=== PATIENT | female | born 2000 | race Caucasian/White ===

== ENCOUNTER → 2019-02-10 22:45 | Observation (INO) ==
[2019-02-10 21:26] LABS: Bilirubin,Urine Negative (Negative); Blood,Urine Negative (Negative); Clarity,Urine Cloudy (Clear); Color,Urine Yellow (Yellow); Glucose,Urine (UA) Normal (Normal); Ketones,Urine Negative (Negative); Leukocyte Esterase,Urine Moderate (Negative); Nitrite,Urine Negative (Negative); PH,Urine 6.5 pH Units (5.0-8.0); Protein,Urine Negative (Neg-Trace); Specific Gravity,Urine < 1.005 (1.010-1.025); Urobilinogen,Urine Normal (Normal)
[2019-02-10 21:29] LABS: Bacteria,Urine Few per hpf (None-Few); Hyaline Casts,Urine None Seen per lpf (None-Few); RBC,Urine 0-3 per hpf (0-3); Squamous Epithelial Cell,Urine Many per lpf (None-Few)
[2019-02-10 21:34] LABS: Amphetamine Screen,Urine Negative ng/mL (Cutoff=1000); Barbiturate Screen,Urine Negative ng/mL (Cutoff=200); Benzodiazepines Screen,Urine Negative ng/mL (Cutoff=200); Cannabinoid Screen,Urine Negative ng/mL (Cutoff = 50); Cocaine Screen,Urine Negative ng/mL (Cutoff= 300); Opiate Screen,Urine Negative ng/mL (Cutoff=300); Phencyclidine Screen,Urine Negative ng/mL (Cutoff=25)
== END | disposition home or self-care (01) ==
LOC: 1NENULAB
PROVIDERS: ADMIT Obstetrics & Gynecology; ATTEND Obstetrics & Gynecology

== ENCOUNTER → 2019-03-24 23:03 | Observation (INO) ==
[2019-03-24 22:20] LABS: Basophils % 0.2 %; Eosinophils # 0.2 K/mcL (0.0-0.6); Eosinophils % 1.4 %; Hematocrit 35.6 % (35.3-44.9); Immature Granulocytes % 0.5 % (0-4); Lymphocytes # 2.2 K/mcL (0.6-4.6); Lymphocytes % 19.6 %; Mean Corpuscular HGB Conc 33.7 g/dL (31.6-35.5); Mean Corpuscular Hemoglobin 30.7 pg (28.0-33.3); Mean Platelet Volume 12.5 fL (9.4-12.4); Monocytes # 0.9 K/mcL (0.0-1.3); Monocytes % 8.2 %; Neutrophils # 7.8 K/mcL (1.6-8.9); Platelet Count 197 K/mcL (140-400); Red Blood Count 3.91 M/mcL (3.82-4.97); Red Cell Distribution Width 12.5 % (11.5-14.5); Segmented Neutrophils % 70.1 %
[2019-03-24 22:25] LABS: Amphetamine Screen,Urine Negative ng/mL (Cutoff=1000); Barbiturate Screen,Urine Negative ng/mL (Cutoff=200); Benzodiazepines Screen,Urine Negative ng/mL (Cutoff=200); Cannabinoid Screen,Urine Negative ng/mL (Cutoff = 50); Cocaine Screen,Urine Negative ng/mL (Cutoff= 300); Opiate Screen,Urine Negative ng/mL (Cutoff=300); Phencyclidine Screen,Urine Negative ng/mL (Cutoff=25)
[2019-03-24 22:29] LABS: Protein/Creatinine Ratio,Urine 0.21 mg/mg (0.00-0.20)
[2019-03-24 22:37] LABS: Alanine Aminotransferase 15 Units/L (7-52); Aspartate Amino Transferase 17 Units/L (13-39); BUN/Creatinine Ratio 17 (6-26); Blood Urea Nitrogen 9 mg/dL (6-20); Lactate Dehydrogenase 140 Units/L (140-271); eGFR For African Americans > 60 (> 60); eGFR For Non-African Americans > 60 (> 60)
--- NOTE | 2019-03-24 23:02 | Discharge Summary ---
Date of Encounter: 03/24/19 Time of Encounter: 23:01 - Discharge Diagnosis (1) 39 weeks gestation of Priority: Primary Status: Acute Comments: admitted for observation PIH labs and BPs WNL False labor (2) NST (non-stress test) reactive on surveillance Priority: Secondary Status: Acute Comments: FHR 135 bpm moderate variability+15x15 accels no decels noted. - Discharge Medications Prescriptions: No Action Vit 108/Iron/Folic AC [ One Tablet] 1 tab PO DAILY Home Medications: Vit 108/Iron/Folic AC [ One Tablet] 1 tab PO DAILY 02/10/19 [History] Allergies/Adverse Reactions: Allergy/AdvReac Type Severity Reaction Status Date / Time NSAIDS (Non-Steroidal Allergy Hives Verified 02/10/19 21:16 Anti-Inflamma Data Procedures and tests throughout hospitalization: Laboratory Tests 03/24/19 03/24/19 03/24/19 21:33 21:33 21:33 WBC 11.0 RBC 3.91 Hgb 12.0 Hct 35.6 MCV 91.0 MCH 30.7 MCHC 33.7 RDW 12.5 Plt Count 197 MPV 12.5 H Immature Gran % 0.5 Seg Neutrophils % 70.1 Lymphocytes % 19.6 Monocytes % 8.2 Eosinophils % 1.4 Basophils % 0.2 Neutrophils # 7.8 Lymphocytes # 2.2 Monocytes # 0.9 Eosinophils # 0.2 Basophils # 0.0 BUN 9 Creatinine 0.53 L Est GFR ( Amer) > 60 Est GFR (Non-Af Amer) > 60 BUN/Creatinine Ratio 17 Uric Acid 4.0 AST 17 ALT 15 Lactate Dehydrogenase 140 Urine Creatinine Protein/Creatinin Ratio Urine Total Protein Urine Opiates Screen Negative Ur Buprenorphine Scrn Negative Ur Barbiturates Screen Negative Ur Phencyclidine Scrn Negative Ur Amphetamines Screen Negative U Benzodiazepines Scrn Negative Urine Cocaine Screen Negative U Marijuana (THC) Screen Negative Ur Drug Screen Interp See Below 03/24/19 21:33 WBC RBC Hgb Hct MCV MCH MCHC RDW Plt Count MPV Immature Gran % Seg Neutrophils % Lymphocytes % Monocytes % Eosinophils % Basophils % Neutrophils # Lymphocytes # Monocytes # Eosinophils # Basophils # BUN Creatinine Est GFR ( Amer) Est GFR (Non-Af Amer) BUN/Creatinine Ratio Uric Acid AST ALT Lactate Dehydrogenase Urine Creatinine 58 Protein/Creatinin Ratio 0.21 H Urine Total Protein 12 Urine Opiates Screen Ur Buprenorphine Scrn Ur Barbiturates Screen Ur Phencyclidine Scrn Ur Amphetamines Screen U Benzodiazepines Scrn Urine Cocaine Screen U Marijuana (THC) Screen Ur Drug Screen Interp Labs on day of discharge: Labs from last 24 hours 03/24/19 03/24/19 03/24/19 21:33 21:33 21:33 WBC 11.0 RBC 3.91 Hgb 12.0 Hct 35.6 MCV 91.0 MCH 30.7 MCHC 33.7 RDW 12.5 Plt Count 197 MPV 12.5 H Immature Gran % 0.5 Seg Neutrophils % 70.1 Lymphocytes % 19.6 Monocytes % 8.2 Eosinophils % 1.4 Basophils % 0.2 Neutrophils # 7.8 Lymphocytes # 2.2 Monocytes # 0.9 Eosinophils # 0.2 Basophils # 0.0 BUN 9 Creatinine 0.53 L Est GFR ( Amer) > 60 Est GFR (Non-Af Amer) > 60 BUN/Creatinine Ratio 17 Uric Acid 4.0 AST 17 ALT 15 Lactate Dehydrogenase 140 Urine Creatinine 58 Protein/Creatinin Ratio 0.21 H Urine Total Protein 12 Urine Opiates Screen Ur Buprenorphine Scrn Ur Barbiturates Screen Ur Phencyclidine Scrn Ur Amphetamines Screen U Benzodiazepines Scrn Urine Cocaine Screen U Marijuana (THC) Screen Ur Drug Screen Interp 03/24/19 21:33 WBC RBC Hgb Hct MCV MCH MCHC RDW Plt Count MPV Immature Gran % Seg Neutrophils % Lymphocytes % Monocytes % Eosinophils % Basophils % Neutrophils # Lymphocytes # Monocytes # Eosinophils # Basophils # BUN Creatinine Est GFR ( Amer) Est GFR (Non-Af Amer) BUN/Creatinine Ratio Uric Acid AST ALT Lactate Dehydrogenase Urine Creatinine Protein/Creatinin Ratio Urine Total Protein Urine Opiates Screen Negative Ur Buprenorphine Scrn Negative Ur Barbiturates Screen Negative Ur Phencyclidine Scrn Negative Ur Amphetamines Screen Negative U Benzodiazepines Scrn Negative Urine Cocaine Screen Negative U Marijuana (THC) Screen Negative Ur Drug Screen Interp See Below Date of admission: 03/24/19 21:16 Discharging clinician: Naida Stephenson Anticipated date of discharge: 03/24/19 - Patient Status Disposition: Home, Self-Care Condition: Good Functional capacity at discharge: independent ambulation - Discharge Instructions Follow Up With: Sergey Hunter MD [Partnered Physician] - - Diet and Activity Activity: increase activity as tolerated Diet: regular diet Hospital Course MEDICAL TECHNOLOGIST CHIEF Hospital course: Patient is a 19 y/o at 39w0d presents to labor and delivery with complaints of elevated BP at home and decreased movement. Patient denies headache, dizziness or blurred vision. Patient reports feeling movement but less than usual. She also reports feeling some contractions but denies LOF or VB. She denies urinary symptoms. Patient then asked to be induced and her bhatti score of 3. Discussed with patient risks of IOL with non-favorable cervix. I then e ncouraged patient to discuss IOL options with her provider Dr. Hunter at her appointment on Tuesday. Patient verbalized understanding. Time Attestation: Total time spent providing and/or coordinating discharge services: Time Spent: Less than 30 minutes Exam - Constitutional General appearance IM: A&O X 3, pleasant, answers questions appropriately - Respiratory Respiratory exam: Present: CTAB - Cardiovascular Cardiovascular exam IM: Present: RRR, +S1, +S2 - GI/Abdominal GI/Abdominal exam IM: normal bowel sounds - Extremities Exam Extremities exam IM: Present: full ROM, normal capillary refill, normal inspection - Neurological Exam Neurological exam: alert, oriented X3, reflexes normal - Other Additional findings: SVE: Closed/50/-2 FHR 135 bpm moderate variability +15x15 accels no decels noted. Irregular contractions. Cat. 1 tracing
== END | disposition home or self-care (01) ==
LOC: 1NENULAB
PROVIDERS: ADMIT Advanced Practice Midwife; ATTEND Advanced Practice Midwife

== ENCOUNTER 2019-03-29 04:00 | Inpatient (IN) ==
[2019-03-29] MEDS ORDERED: Lidocaine 1% 20 ML MDV ID PRN (04:26)
[2019-03-29] MEDS ORDERED: Famotidine 20 MG/2 ML VIAL IVP PRN (04:26)
[2019-03-29] MEDS ORDERED: Naloxone 0.4 MG/ML INJ IVP PRN (04:26)
[2019-03-29] MEDS ORDERED: miSOPROStol 25 MCG TABLET PO PRN (04:26)
[2019-03-29] MEDS ORDERED: Metoclopramide 10 MG/2 ML VIAL IVP PRN (04:26)
[2019-03-29] MEDS ORDERED: Ondansetron 4 MG/2 ML VIAL IVP PRN (04:26)
[2019-03-29] MEDS ORDERED: *HR* Nalbuphine 10 MG/ML AMPUL IVP PRN (04:26)
[2019-03-29] MEDS ORDERED: Ringers Solution, Lactated 1,000 ML IVC SCH (04:30)
[2019-03-29 04:59] LABS: Basophils % 0.3 %; Eosinophils # 0.1 K/mcL (0.0-0.6); Eosinophils % 1.3 %; Hematocrit 35.5 % (35.3-44.9); Hemoglobin 11.9 g/dL (11.5-15.4); Immature Granulocytes % 0.5 % (0-4); Lymphocytes # 2.6 K/mcL (0.6-4.6); Lymphocytes % 23.9 %; Mean Corpuscular HGB Conc 33.5 g/dL (31.6-35.5); Mean Corpuscular Hemoglobin 30.1 pg (28.0-33.3); Mean Corpuscular Volume 89.9 fL (83.0-100.0); Mean Platelet Volume 12.6 fL (9.4-12.4); Monocytes # 0.9 K/mcL (0.0-1.3); Monocytes % 8.3 %; Neutrophils # 7.2 K/mcL (1.6-8.9); Platelet Count 194 K/mcL (140-400); Red Blood Count 3.95 M/mcL (3.82-4.97); Red Cell Distribution Width 12.5 % (11.5-14.5); Segmented Neutrophils % 65.7 %; White Blood Count 10.9 K/mcL (4.3-11.1)
[2019-03-29 05:08] LABS: Amphetamine Screen,Urine Negative ng/mL (Cutoff=1000); Barbiturate Screen,Urine Negative ng/mL (Cutoff=200); Benzodiazepines Screen,Urine Negative ng/mL (Cutoff=200); Cannabinoid Screen,Urine Negative ng/mL (Cutoff = 50); Cocaine Screen,Urine Negative ng/mL (Cutoff= 300); Opiate Screen,Urine Negative ng/mL (Cutoff=300); Phencyclidine Screen,Urine Negative ng/mL (Cutoff=25)
--- NOTE | 2019-03-29 06:43 | Event Note ---
Date of Encounter: 03/29/19 Time of Encounter: 06:42 Double cervical siegel balloon discussed with patient and she agrees to proceed. Siegel placed without difficulty, 60mL sterile water instilled into each balloon. Patient tolerated without difficulty.
[2019-03-29] MEDS ORDERED: Epidural Premix (fent/bupiv) 110 ML EP SCH (08:00)
[2019-03-29] MEDS ORDERED: EPHEDrine 50 MG/ML VIAL IVP PRN (08:00)
--- NOTE | 2019-03-29 08:00 | Anesthesia Evaluation PreOp ---
Date of Encounter: 03/29/19 Time of Encounter: 07:56 - Past History Planned Operation: rima Cardiac History: Denies any Significant Hx Pulmonary History: Denies Any Significant HX BENCH MECHANIC History: Denies Any Significant HX Other Medical History: Denies Any Significant HX Anesthesia History: No Prior Anesthetic Complications, Past Anesthesia : Yes (39+5, ) Alcohol Use: none Drug use: none Medications and Allergies Vit 108/Iron/Folic AC [ One Tablet] 1 tab PO DAILY 02/10/19 [History] Allergy/AdvReac Type Severity Reaction Status Date / Time NSAIDS (Non-Steroidal Allergy Severe Anaphylaxis Verified 03/29/19 04:41 Anti-Inflamma - Meds/Allergy Pre-op Review Medications Reviewed: Yes Allergies Reviewed: Yes Beta Blockers on Current Med List: No Anesthesia Results - Labs 03/29/19 04:40 Anesthesia Exam O2 Sat Height 1.63 m Weight 75.8 kg Height: 64 Weight: 75 - HEENT Pupil (Motor): Pupils equal Mallampati: II Teeth: Normal Oral Opening: Greater than 3 - BENCH MECHANIC LOC: Oriented BENCH MECHANIC Motor: Normal RUE, Normal LUE, Normal RLE, Normal LLE, Normal Face BENCH MECHANIC Sensory: Normal: RUE, LUE, RLE, LLE, Face - Cardiac Rhythm: Regular Murmur: None JVD: No Carotid Bruit: No - Pulmonary Breath Sounds: bilateral Clear Respiratory Effort: Symmetrical Anesthesia Assess/Plan ASA Score: 2 Level of consciousness: Cooperative Anesthetic Plan: Epidural Monitoring Plan: Standard Monitors
[2019-03-29] MEDS ORDERED: Oxytocin 20 units/ LR 1000 mL 20 UNIT/1,000 ML BAG IVC SCH (12:30)
--- NOTE | 2019-03-29 13:03 | OB/GYN History & Physical ---
Date of Encounter: 03/29/19 Time of Encounter: 13:00 Assessment and Plan (1) 39 weeks gestation of Current visit: No Status: Acute History of Present Illness Chief complaint: induction HPI: Ms. Nunez is a 19 year old female 1 at 39 weeks and 4 days. This patient presents to labor and delivery for induction of labor. She has allergies to nonsteroidals which causes anaphylaxis. Current medications include vitamins. She has no chronic medical conditions. Surgical history includes laparoscopic surgery for endometriosis, tonsillectomy, wisdom teeth extraction. She has no history of abnormal passers, STDs or pelvic infections. Socially she denies tobacco, alcohol, illicit drug use. Family history is significant for heart disease, skin cancer.. Past Med Surg Social Fam HX - Past Medical History Medical history: no medical history Psychiatric history: no psych history - Past Surgical History Surgical History: other Additional surgical history: tubes edith ears, endometorosis sx, T&A - Social History Smoking Status: Former smoker Smokeless Tobacco Status: No Alcohol use: none Drug use: none - Family History Mother Adopted: No Hx Family Cardiac Disorders: No Hx Family Respiratory Disorders: No Hx Family Cancer: No Hx Family GI Disorders: No Hx Family Genitourinary Disorders: No Hx Family Endocrine Disorder: Yes (DM2) Hx Family Musculoskeletal Disorders: No Hx Family Neuromuscular Disorders: No Hx Family Neurologic Disorders: No Hx Family HEENT Disorders: No Hx Family Autoimmune Disorders: No Hx Family Reproductive Disorders: No Hx Family Psychosocial Disorders: No Hx Family Medical Disorders: No Obstetrical History - Pregnancies : 1 Medications and Allergies Vit 108/Iron/Folic AC [ One Tablet] 1 tab PO DAILY 02/10/19 [History] Allergy/AdvReac Type Severity Reaction Status Date / Time NSAIDS (Non-Steroidal Allergy Severe Anaphylaxis Verified 03/29/19 04:41 Anti-Inflamma Review of System OB All systems PM: reviewed and no additional remarkable complaints except as stated Exam - Constitutional Constitutional: well developed, well nourished, no acute distress, average body habitus - HEENT HEENT: EOMI, PERRL, Normocephaly - Neck Neck exam: full ROM - Lungs Respiratory exam: CTAB - Cardiovascular Cardiovascular exam: RRR - Abdomen Abdomen: Present: bowel sounds normal, gravid, non tender - Extremities Extremities exam: full ROM, normal capillary refill - Vagina Vagina: Present: normal moisture - Cervix Dilation: 2 Effacement: 50 Station: -3 - Uterus Uterus exam: Present: normal size Results Result Diagrams: 03/29/19 04:40 Abnormal lab results MPV 12.6 fL (9.4-12.4) H 03/29/19 04:40 All other labs normal. - VTE Reasons for not Prescribing Prophylaxis: Treatment not Indicated - Low risk for VTE
--- NOTE | 2019-03-29 13:29 | Event Note ---
Date of Encounter: 03/29/19 Time of Encounter: 13:27 Vaginal exam performed. Mccallum is out. Cervix now 7 cm 70% effaced and -3 station. Category 1 tracing. Patient up walking to try to bring the infant down.
--- NOTE | 2019-03-29 15:33 | Event Note ---
Date of Encounter: 03/29/19 Time of Encounter: 15:31 Patient examined. Sterile vaginal exam 8 cm 80% effaced and 0 to -1 station. Artificial rupture membranes was performed. Clear fluid was returned. Category 1 tracing. Contractions every 2-3 minutes.
[2019-03-29] MEDS ORDERED: Ropivacaine/PF 0.2% 20 ML VIAL ONE (17:21)
[2019-03-29] MEDS ORDERED: *HR* FentaNYL (PF) 100 MCG/2 ML VIAL ONE (17:21)
--- NOTE | 2019-03-29 17:49 | Anesthesia Procedures ---
Date of Encounter: 03/29/19 Time of Encounter: 17:20 (procedure end time 123) Procedures: Anesthesia - Epidural/Spinal Patient ID/Chart reviewed: Yes Patient examined: Yes OB Eval: Contractions: Non-stressed pattern Consent Obtained: Yes Supplemental Oxygen: None/Room Air Site Prep: Aseptic Technique Patient position: upright Local Anesthetic: Lidocaine 1% Amount of Local Anesthetic used: 3 Touhy Needle Gauge: 18 Touhy Needle Depth (cm): 5 Catheter Depth at Skin (cm): 12 Test Dose (1.5% Lido + Epi): Volume given (mls): 3 Test Dose Result: Negative Loading Dose: Fentanyl (mcg): 100 Loading Dose: Other: 5ml 0.2% ropivicaine Loading Dose Administered: Thru Touhy Needle Infusion Med: 0.125% Bupivacaine w/ 2 mcg/ml Fentanyl Infusion Rate (mls/hr): [address]: Tegaderm Interspace Used: L4-L5 Loss of Resistance (TIM): Yes Blood: No CSF: No Paresthesia: No Procedure: Strict asepsis, one attempt without redirections. No parasthesias, no heme, no CSF. FHR unchanged
--- NOTE | 2019-03-29 21:36 | Event Note ---
Date of Encounter: 03/29/19 Time of Encounter: 21:35 Repeat vaginal exam performed. Cervix is unchanged. Patient is 5-6 cm 70% effaced and very high. There is been no descent of baby. At this point tracing is category 1. Contractions irregular. We discussed the possibility of a section. We just touch on the subject as this baby has not come down. She understands completely. She also understands as long as the tracing is reactive we will continue with Pitocin and inducing her labor.
[2019-03-30] MEDS ORDERED: Chloroprocaine/PF 20 ML VIAL INFILT ONE (03:24)
--- NOTE | 2019-03-30 03:24 | Event Note ---
Date of Encounter: 03/30/19 Time of Encounter: 03:22 Desire patient. Patient has been pushing with nursing. Patient has not been complete for 6 hours. There is been no descent of . Patient has tried multiple positions pushing. She is towel old. She was told with her legs. Nursing is helped tremendously. Patient cannot remove this baby down. We discussed a section. Patient does agree. We will get consent and take patient back for a primary section.
[2019-03-30] MEDS ORDERED: *HR* Oxytocin 10 UNIT/ML VIAL IM ONE (03:25)
[2019-03-30] MEDS ORDERED: *HR* Morphine Sulfate/PF 10 MG/10 ML AMPUL ONE (03:29)
[2019-03-30] MEDS ORDERED: Lidocaine -MPF 2% 5 ML VIAL ONE (03:33)
[2019-03-30] MEDS ORDERED: Azithromycin 500 MG in 0.9 % Sodium Chloride 250 ML IVPB ONE (03:54)
[2019-03-30] MEDS ORDERED: Ringers Solution, Lactated 1,000 ML ONE (03:57)
[2019-03-30] MEDS ORDERED: *HR* FentaNYL (PF) 100 MCG/2 ML VIAL ONE ×2 (03:58→04:41)
[2019-03-30] MEDS ORDERED: *HR* OxyCODONE Immed Rel 5 MG TABLET PO PRN (04:09)
[2019-03-30] MEDS ORDERED: *HR* HYDROmorphone (PF) 1 MG/ML SYRINGE IVP PRN (04:09)
[2019-03-30] MEDS ORDERED: Acetaminophen IV 1,000 MG/100 ML INFUS..BTL IVPB ONE (04:09)
[2019-03-30] MEDS ORDERED: Ondansetron 4 MG/2 ML VIAL ONE (04:12)
--- NOTE | 2019-03-30 04:41 | OB/GYN Procedure Note ---
Section - Date of procedure: 03/30/19 Preop diagnosis: arrest of descent Post-op diagnosis: same Procedure: primary low transverse Surgeon: Sergey Hunter Quantitated Blood Loss: 500 Was there an student assistant present: Yes Urgent Care: [facility] [employer]lorine Plant Operator: Navi Jolly Anesthesia Type: Spinal section complications: none Disposition: PACU Specimens: Placenta - (s) A Infant Delivery Date: 03/30/19 Delivery Time: 03:57 Presentation: vertex Position: OA Route of delivery: other Gender: Female Viability: Viable Pounds: 6 Ounces: 12 Gram Weight: 3.075 kg at 1 minute: 8 at 5 minutes: 9 Shoulder Dystocia: not encountered Placenta: spontaneous Cord: nuchal cord, 3 umbilical vessels - Narrative Narrative: This patient had been complete for 6 hours. She was unable to bring the infant down with pushing. Patient was consented for section. She was taken back to the operating with IV in place. She was then given a bolus of her epidural. She was then prepped and draped in usual sterile fashion. Once adequate analgesia to definitive since it was made. Was carried sharply through the subtenons fatty tissue until the fascial layers reached. The fascia was then nicked in the midline and incised bilaterally with scissors. Then dissected vertically for adequate exposure. Rectus abdominis musculature is and midline. The peritoneum sharply entered dissected vertically. A bladder blade was placed at the inferior margin incision. Bladder flap was then developed. A bladder blade was placed over the bladder flap and a low transverse incision was then made lower segment. Fluid to be clear. The 's head was then delivered per the rest cancer without difficulty. Infant cried immediately upon delivery there was a cord around neck 1 which was delivered through. cried immediately upon delivery. Cord was cut to cut. The was then passed to NICU team in attendance. Cord bloods obtained. Placenta was then delivered via uterine lavage and massage. The uterus was then delivered. Uterine lavage again was performed. There was extension of the incision down the patient's right side. This was closed the Vicryl suture running locking fashion. The incision was then closed the Vicryl suture running locking fashion. One [id number] was placed for final hemostasis. At this point the uterus was replaced the pelvic cavity. The pelvic cavity was rinsed thoroughly with sterile water 2. Seeing no bleeding the procedure was terminated. Sponge, needle, and instrument count was correct 2. The fascia was then closed the Vicryl suture running nonlocking fashion. The suprafascial region was rinsed thoroughly with sterile water testing all bleeders cauterized. The skin was closed gabe. Patient tolerated procedure well. His blood loss 500 mL. Findings a female infant weight 6 lbs. 12 oz. Apgars are 8 at 1 minute and 9 at 5 minutes.
--- NOTE | 2019-03-30 06:10 | Anesthesia Evaluation Post Op ---
Date of Encounter: 03/30/19 Time of Encounter: 06:08 - Vital Signs Vital Signs: 0608 T97.9 hr87 RR18 [id number] - Lungs Lungs: Clear Ascult./Percussion - Airway Airway: Non-obstructed - Cardiovascular Regular Rate - Mental Status Mental Status: Alert & Oriented, Answers Appropriately - Pain Pain Scale: 5 Pain Scale used: Numeric (1 - 10) - Nausea Vomiting Nausea Vomiting: Not Present - Hydration Hydration: Ice chips, Mccallum catheter - Discharge PostOp Status: Transfer Patient to floor
[2019-03-30] MEDS ORDERED: Sennosides 8.6 MG TABLET PO PRN (09:02)
[2019-03-30] MEDS ORDERED: Simethicone 80 MG TAB.CHEW PO PRN (09:02)
[2019-03-30] MEDS ORDERED: Rho Immune Globulin 1,500 UNIT SYRINGE IM ONE (09:02)
[2019-03-30] MEDS ORDERED: Acetaminophen 325 MG TABLET PO PRN (09:02)
[2019-03-30] MEDS ORDERED: Oxytocin 20 units/ LR 1000 mL 20 UNIT/1,000 ML BAG IVC SCH (09:02)
[2019-03-30] MEDS ORDERED: Metoclopramide 10 MG/2 ML VIAL IVP PRN (09:02)
[2019-03-30] MEDS ORDERED: Ondansetron 4 MG/2 ML VIAL IVP PRN (09:02)
[2019-03-30] MEDS: ceFAZolin 2,000 MG in Water for inj. (sterile) 20 ML IVP SCH ×2 (10:23→18:31)
[2019-03-30] MEDS: *HR* OxyCODONE/APAP 5/325 TABLET PO PRN ×4 (10:23→22:36)
[2019-03-30] MEDS: Prenatal Vit/FA 1 EACH TABLET PO SCH (10:31)
[2019-03-31] MEDS: ceFAZolin 2,000 MG in Water for inj. (sterile) 20 ML IVP SCH (02:14)
[2019-03-31] MEDS: *HR* OxyCODONE/APAP 5/325 TABLET PO PRN ×2 (02:30→06:24)
[2019-03-31] MEDS: Prenatal Vit/FA 1 EACH TABLET PO SCH (09:08)
--- NOTE | 2019-03-31 09:36 | OB/GYN Progress Note ---
Date of Encounter: 03/31/19 Time of Encounter: 09:34 - Assessment and Plan (1) delivery delivered Current Visit: Yes Status: Acute Pt meeting POD1 milestones. Continue to optimize pain control today. Anticipate discharge home POD2-3. Subjective - Subjective Interval history: Pt reports pain 6/10 at this time. She states the percocet only lasts about 2 hours. She has anaphylaxis to Motrin and was told not to take any NSAIDs ever again. She denies any other complaints. Patient reports: appetite normal, voiding normally, pain poorly controlled, ambu lating normally [place]: doing well Objective - Vital Signs Latest vital signs: Vital Signs Temp Pulse Resp BP Pulse Ox 03/31/19 00:00 98.7 F 87 16 117/76 98 03/30/19 20:00 98.5 F 92 16 126/83 98 03/30/19 16:28 98.2 F 79 16 113/72 97 03/30/19 10:40 97.8 F 77 16 118/73 98 Intake and Output 03/30/19 03/31/19 03/31/19 23:59 07:59 15:59 Intake Total 1320 / 1460 1520 / 1520 Output Total 1400 / 2650 1020 / 1020 Balance -80 / -1190 500 / 500 Intake: IV Fluids 520 / 540 20 / 20 Pitocin 20 unit In 1,000 ml @ 500 / 500 125 mls/hr IVC .Q8H [facility] Rx#: [id number] Ancef 2,000 MG In Water for inj 20 / 40 20 / 20 . (sterile) 20 ML @ 200 mls/hr IVP Q8HR [facility] Rx#:[id number] Oral 800 / 920 1500 / 1500 Output: Urine 1400 / 1400 1020 / 1020 Other: Weight 74.661 kg Patient Weight 03/31/19 23:59 Weight 74.661 kg - Exam Lungs: bilateral: normal Chest: Normal S1, Normal S2 Extremities: Present: edema (mild LE bilaterally) Abdomen: Present: soft, distention (tympanic) Incision: Present: dry, intact (gabe intact, no erythema or warmth) Uterus: Present: firm Fundal Height: 1 (U/1)
[2019-03-31 10:13] LABS: Basophils % 0.2 %; Eosinophils # 0.1 K/mcL (0.0-0.6); Eosinophils % 0.7 %; Hematocrit 33.6 % (35.3-44.9); Immature Granulocytes % 0.6 % (0-4); Lymphocytes # 2.5 K/mcL (0.6-4.6); Lymphocytes % 18.2 %; Mean Corpuscular HGB Conc 32.7 g/dL (31.6-35.5); Mean Corpuscular Hemoglobin 30.6 pg (28.0-33.3); Mean Corpuscular Volume 93.6 fL (83.0-100.0); Mean Platelet Volume 12.3 fL (9.4-12.4); Monocytes # 1.1 K/mcL (0.0-1.3); Monocytes % 8.1 %; Neutrophils # 9.7 K/mcL (1.6-8.9); Platelet Count 167 K/mcL (140-400); Red Blood Count 3.59 M/mcL (3.82-4.97); Segmented Neutrophils % 72.2 %; White Blood Count 13.5 K/mcL (4.3-11.1)
[2019-03-31] MEDS: *HR* OxyCODONE/APAP 5/325 TABLET PO SCH ×5 (11:59→21:43)
[2019-03-31] MEDS: Simethicone 80 MG TAB.CHEW PO SCH ×3 (12:01→21:44)
[2019-04-01] MEDS: *HR* OxyCODONE/APAP 5/325 TABLET PO SCH ×4 (00:14→06:11)
[2019-04-01 08:10] VITALS: BP 119/81
[2019-04-01] MEDS: Simethicone 80 MG TAB.CHEW PO SCH (08:18)
[2019-04-01] MEDS: Prenatal Vit/FA 1 EACH TABLET PO SCH (08:18)
--- NOTE | 2019-04-01 11:17 | Discharge Summary ---
Date of Encounter: 04/01/19 Time of Encounter: 11:15 - Discharge Diagnosis (1) delivery delivered Priority: Primary Status: Acute - Discharge Medications Prescriptions: New Acetaminophen [8Hr Arthritis Pain Relief] 650 mg PO Q6H PRN #30 tablet.er PRN Reason: Mild Pain Docusate [Colace] 100 mg PO BID #60 capsule Simethicone [Gas-X] 80 mg PO TID #21 tab.chew OxyCODONE/APAP 5/325 [Percocet 5/325 MG] 1 each PO Q6H PRN 7 Days #28 tablet PRN Reason: Severe Pain Continued Vit 108/Iron/Folic AC [ One Tablet] 1 tab PO DAILY Home Medications: Vit 108/Iron/Folic AC [ One Tablet] 1 tab PO DAILY 02/10/19 [History] Acetaminophen [8Hr Arthritis Pain Relief] 650 mg PO Q6H PRN #30 tablet.er 04/01/19 [Rx] Docusate [Colace] 100 mg PO BID #60 capsule 04/01/19 [Rx] OxyCODONE/APAP 5/325 [Percocet 5/325 MG] 1 each PO Q6H PRN 7 Days #28 tablet 04/01/19 [Rx] Simethicone [Gas-X] 80 mg PO TID #21 tab.chew 04/01/19 [Rx] Allergies/Adverse Reactions: Allergy/AdvReac Type Severity Reaction Status Date / Time NSAIDS (Non-Steroidal Allergy Severe Anaphylaxis Verified 03/29/19 04:41 Anti-Inflamma Data Procedures and tests throughout hospitalization: Laboratory Tests 03/29/19 03/29/19 03/31/19 04:40 04:40 04:00 WBC 10.9 13.5 H RBC 3.95 3.59 L Hgb 11.9 11.0 L Hct 35.5 33.6 L MCV 89.9 93.6 MCH 30.1 30.6 MCHC 33.5 32.7 RDW 12.5 13.0 Plt Count 194 167 MPV 12.6 H 12.3 Immature Gran % 0.5 0.6 Seg Neutrophils % 65.7 72.2 Lymphocytes % 23.9 18.2 Monocytes % 8.3 8.1 Eosinophils % 1.3 0.7 Basophils % 0.3 0.2 Neutrophils # 7.2 9.7 H Lymphocytes # 2.6 2.5 Monocytes # 0.9 1.1 Eosinophils # 0.1 0.1 Basophils # 0.0 0.0 Urine Opiates Screen Negative Ur Buprenorphine Scrn Negative Ur Barbiturates Screen Negative Ur Phencyclidine Scrn Negative Ur Amphetamines Screen Negative U Benzodiazepines Scrn Negative Urine Cocaine Screen Negative U Marijuana (THC) Screen Negative Ur Drug Screen Interp See Below Primary for arrest of decent - Impressions ITS Impressions KUB X-Ray 03/30/19 04:49 IMPRESSION: 1. No definite abnormal radiopaque foreign body. 2. Curvilinear catheter-like structure overlying the pelvis, most likely a Mccallum catheter. However, clinical correlation is advised. D/ / Navi Romano MD / Navi Romano MD Interpreting Provider: Navi Romano MD Date of admission: 03/29/19 04:24 Primary care physician: PCP NONE Discharging clinician: Lolita Luque Anticipated date of discharge: 04/01/19 - Patient Status Disposition: Home, Self-Care Condition: Good Functional capacity at discharge: independent ambulation Overall status at discharge: patient is progressing back to baseline - Discharge Instructions Follow Up With: Sergey Hunter MD [Partnered Physician] - - Diet and Activity Activity: increase activity as tolerated Diet: advance to your usual diet Hospital Course Reason for admission: induction of labor, IUP at term Delivery: section Other procedures: none complications: none Discharge diagnosis: IUP at term delivered baby: female Time Attestation: Total time spent providing and/or coordinating discharge services: Time Spent: Less than 30 minutes - VTE Reasons for not Prescribing Prophylaxis: Treatment not Indicated - Low risk for VTE Documentation of Mechanical Device: Intermittent pneumatic compression device Exam - Constitutional Vitals: Temp Pulse Resp BP Pulse Ox 97.8 F 64 14 119/81 99 04/01/19 08:09 04/01/19 08:09 04/01/19 08:09 04/01/19 08:09 04/01/19 08:09 General appearance IM: A&O X 3, pleasant, no acute distress - Respiratory Respiratory exam: Present: CTAB - Cardiovascular Cardiovascular exam IM: Present: RRR - GI/Abdominal GI/Abdominal exam IM: normal bowel sounds, soft, tenderness (appropriate postop ) Incision: normal, dry, intact - Uterine Tone: Firm - Extremities Exam Extremities exam IM: Absent: calf tenderness
== END 2019-04-01 11:45 | disposition home or self-care (01) | DRG 788 ==
LOC: 1NENULAB 04:24 → 1NENUOBS 03-30 09:37
PROVIDERS: ADMIT Obstetrics & Gynecology; ATTEND Obstetrics & Gynecology

== ENCOUNTER → 2022-04-22 00:07 | Observation (INO) | END | disposition home or self-care (01) | LOC: 1NENULAB | PROVIDERS: ADMIT Obstetrics & Gynecology; ATTEND Obstetrics & Gynecology ==

== ENCOUNTER → 2022-04-22 10:55 | Observation (INO) | END | disposition home or self-care (01) | LOC: 1NENULAB | PROVIDERS: ADMIT Student in an Organized Health Care Education/Training Program; ATTEND Student in an Organized Health Care Education/Training Program ==

== ENCOUNTER → 2022-04-23 12:19 | Observation (INO) | END | disposition home or self-care (01) | LOC: 1NENULAB | PROVIDERS: ADMIT Obstetrics & Gynecology; ATTEND Obstetrics & Gynecology ==

== ENCOUNTER 2022-05-02 06:05 | Inpatient (IN) ==
[~2022-05-02 06:05] MED LIST: *HR* Nalbuphine 10 MG/ML AMPUL IM PRN; Azithromycin 500 MG in 0.9 % Sodium Chloride 250 ML IVPB PRN; Famotidine 20 MG/2 ML VIAL IVP PRN; Lidocaine 1% 20 ML MDV INFILT PRN; Metoclopramide 10 MG/2 ML VIAL IVP PRN; Naloxone 0.4 MG/ML INJ IVP PRN; Ondansetron 4 MG/2 ML VIAL IVP PRN; Ringers Solution, Lactated 1,000 ML IVC SCH
[2022-05-02 06:16] LABS: Eosinophils % 1.7 %; Hemoglobin 12.1 g/dL (11.5-15.4); Mean Platelet Volume 13.5 fL (9.4-12.4)
[2022-05-02 06:18] LABS: Basophils % 0.3 %; Eosinophils # 0.2 K/mcL (0.0-0.6); Hematocrit 36.4 % (35.3-44.9); Immature Granulocytes % 0.5 % (0-4); Immature Platelets 18.3 % (1.1-6.1); Lymphocytes # 2.6 K/mcL (0.6-4.6); Lymphocytes % 22.2 %; Mean Corpuscular HGB Conc 33.2 g/dL (31.6-35.5); Mean Corpuscular Hemoglobin 29.3 pg (28.0-33.3); Mean Corpuscular Volume 88.1 fL (83.0-100.0); Monocytes % 8.7 %; Neutrophils # 7.9 K/mcL (1.6-8.9); Platelet Count 176 K/mcL (140-400); Red Blood Count 4.13 M/mcL (3.82-4.97); Red Cell Distribution Width 13.2 % (11.5-14.5); Segmented Neutrophils % 66.6 %; White Blood Count 11.8 K/mcL (4.3-11.1)
[2022-05-02] MEDS ORDERED: Epidural Premix (fent/bupiv) 110 ML EP ONE (06:35)
[2022-05-02] MEDS ORDERED: EPHEDrine sulfate 50 MG/10 ML VIAL IVP PRN (06:59)
[2022-05-02] MEDS ORDERED: Epidural Premix (fent/bupiv) 110 ML EP SCH (07:00)
[2022-05-02] MEDS ORDERED: Oxytocin 30 UNIT/503 ML BAG IVC SCH ×2 (08:15→19:30)
[2022-05-02 10:05] LABS: Amphetamine Screen,Urine Negative ng/mL (Cutoff=1000); Barbiturate Screen,Urine Negative ng/mL (Cutoff=200); Benzodiazepines Screen,Urine Negative ng/mL (Cutoff=200); Cannabinoid Screen,Urine Negative ng/mL (Cutoff = 50); Cocaine Screen,Urine Negative ng/mL (Cutoff= 300); Opiate Screen,Urine Negative ng/mL (Cutoff=300); Phencyclidine Screen,Urine Negative ng/mL (Cutoff=25)
[2022-05-02] MEDS ORDERED: Famotidine 20 MG/2 ML VIAL IVP ONE (11:10)
[2022-05-02] MEDS ORDERED: Famotidine 20 MG/2 ML VIAL ONE (15:30)
[2022-05-02] MEDS ORDERED: Ondansetron 4 MG/2 ML VIAL ONE (15:51)
[2022-05-02] MEDS ORDERED: Acetaminophen IV 1,000 MG/100 ML BAG IVPB ONE (15:51)
[2022-05-02] MEDS ORDERED: Tranexamic Acid 1,000 MG/100ML 1,000 MG/100 ML PIGGYBACK IVPB ONE (16:10)
[2022-05-02] MEDS ORDERED: *HR* Succinylcholine 200 MG/10 ML VIAL IVP ONE (16:12)
[2022-05-02] MEDS ORDERED: Lidocaine/EPI 1:200k 2% PF 20 ML VIAL ONE (16:12)
[2022-05-02] MEDS ORDERED: Ringers Solution, Lactated 1,000 ML ONE (16:21)
[2022-05-02] MEDS ORDERED: *HR* Morphine Sulfate/PF 10 MG/10 ML AMPUL ONE (16:41)
[2022-05-02] MEDS ORDERED: *HR* Promethazine 25 MG/ML VIAL ONE (16:42)
[2022-05-02] MEDS ORDERED: Rho Immune Globulin 1,500 UNIT SYRINGE IM ONE (19:28)
[2022-05-02] MEDS ORDERED: Ondansetron 4 MG/2 ML VIAL IVP PRN (19:28)
[2022-05-02] MEDS ORDERED: Metoclopramide 10 MG/2 ML VIAL IVP PRN (19:28)
[2022-05-02] MEDS ORDERED: Acetaminophen 325 MG TABLET PO SCH (19:30)
[2022-05-02] MEDS ORDERED: Ringers Solution, Lactated 1,000 ML IVC SCH (19:30)
[2022-05-02] MEDS: *HR* OxyCODONE Immed Rel 5 MG TABLET PO PRN (19:58)
[2022-05-02] MEDS: Acetaminophen 325 MG TABLET PO SCH (20:00)
[2022-05-02] MEDS: metroNIDAZOLE 500 MG TABLET PO SCH (20:34)
[2022-05-02] MEDS: cephALEXin 500 MG CAPSULE PO SCH (20:34)
[2022-05-02] MEDS: Simethicone 80 MG TAB.CHEW PO PRN (20:39)
[2022-05-02] MEDS ORDERED: Methylergonovine 0.2 MG/ML AMPUL IM ONE (23:58)
[2022-05-03] MEDS: *HR* OxyCODONE Immed Rel 5 MG TABLET PO PRN ×6 (00:05→21:08)
[2022-05-03] MEDS: Acetaminophen 325 MG TABLET PO SCH ×3 (03:36→19:37)
[2022-05-03] MEDS: Simethicone 80 MG TAB.CHEW PO PRN ×3 (03:36→16:30)
[2022-05-03 03:54] LABS: Basophils % 0.1 %; Hematocrit 31.6 % (35.3-44.9); Mean Corpuscular HGB Conc 33.2 g/dL (31.6-35.5); Mean Corpuscular Hemoglobin 29.2 pg (28.0-33.3); Red Blood Count 3.59 M/mcL (3.82-4.97)
[2022-05-03 03:55] LABS: Hemoglobin 10.5 g/dL (11.5-15.4); Immature Granulocytes % 0.5 % (0-4); Immature Platelets 16.2 % (1.1-6.1); Lymphocytes # 1.6 K/mcL (0.6-4.6); Lymphocytes % 7.5 %; Mean Platelet Volume 13.5 fL (9.4-12.4); Monocytes # 1.2 K/mcL (0.0-1.3); Monocytes % 5.6 %; Platelet Count 169 K/mcL (140-400); Red Cell Distribution Width 13.4 % (11.5-14.5); Segmented Neutrophils % 86.3 %; White Blood Count 21.4 K/mcL (4.3-11.1)
[2022-05-03 03:57] LABS: Neutrophils # 18.5 K/mcL (1.6-8.9)
[2022-05-03] MEDS: cephALEXin 500 MG CAPSULE PO SCH ×3 (08:47→19:38)
[2022-05-03] MEDS: metroNIDAZOLE 500 MG TABLET PO SCH ×3 (08:47→19:38)
[2022-05-03] MEDS ORDERED: Prenatal Vit/FA 1 EACH TABLET PO SCH (09:00)
[2022-05-03] MEDS ORDERED: NON-FORMULARY MEDICATION 1 EACH EACH (Prenatal Formula Tablet 1 TAB) PO SCH (09:00)
[2022-05-03 19:54] VITALS: BP 124/82; PULSE 104; TEMP 99.1; O2SAT 98
[2022-05-03] MEDS ORDERED: *HR* OxyCODONE Immed Rel 5 MG TABLET PO ONE (21:07)
== END 2022-05-03 23:59 | disposition other institution (70) | DRG 560 ==
LOC: 1NENULAB → 1NENUOBS 19:26
PROVIDERS: ADMIT Registered Nurse; ATTEND Registered Nurse